=== PATIENT | male | born 1965 | race Caucasian/White ===

== ENCOUNTER 2018-07-26 08:16 | Day surgery (SDC) | payer BC ==
[~2018-07-26 08:16] MED LIST: ACETAMINOPHEN 1,000 MG/100 ML BTL IV ONE; CEFAZOLIN 2 Gram 2 GM/50 ML BAG IVPB ONE
[2018-07-26] MEDS ORDERED: METOCLOPRAMIDE 10 MG TABLET PO ONE (08:17)
[2018-07-26] MEDS ORDERED: BUPIVACAINE LIPOSOME/PF 133MG/10ML VIAL IV ONE (08:17)
[2018-07-26] MEDS ORDERED: BUPIVACAINE 0.5% W/EPI MPF 30 ML VIAL IVP ONE (08:17)
[2018-07-26] MEDS ORDERED: PROPOFOL 10 MG/ML VIAL IV ONE (08:17)
[2018-07-26] MEDS ORDERED: FENTANYL PF 100MCG/2ML VIAL IV ONE ×2 (08:17)
[2018-07-26] MEDS ORDERED: ONDANSETRON HCL IV 4 MG/2 ML VIAL IVP ONE (08:17)
[2018-07-26] MEDS ORDERED: LIDOCAINE 2% MDV (20MG/ML) 20ML VIAL IV ONE (08:17)
[2018-07-26] MEDS ORDERED: SEVOFLURANE 250 ML INH ONE (08:17)
[2018-07-26] MEDS ORDERED: FAMOTIDINE 20MG TABLET PO ONE (08:17)
[2018-07-26] MEDS ORDERED: EPHEDRINE SULFATE 50 MG/ML ML IV ONE (08:17)
[2018-07-26] MEDS ORDERED: SCOPOLAMINE 1 PATCH TDSY TD ONE (08:17)
[2018-07-26] MEDS ORDERED: HYDROCODONE/APAP 7.5/325MG TABLET PO ONE (08:17)
[2018-07-26] MEDS ORDERED: DEXAMETHASONE 4 MG/ML 1ML VIAL IVP ONE (08:17)
[2018-07-26] MEDS ORDERED: MIDAZOLAM HCL 2MG/2ML VIAL IV ONE (08:17)
--- NOTE | 2018-07-30 23:00 | Operative Note ---
DATE OF SURGERY: 07/26/2018 PREOPERATIVE DIAGNOSIS: RIGHT DISTAL BICEPS RUPTURE. POSTOPERATIVE DIAGNOSIS: RIGHT DISTAL BICEPS RUPTURE. PROCEDURE: RIGHT DISTAL BICEPS REPAIR. SURGEON: ANN GARAY M.D. ANESTHESIA: GENERAL ENDOTRACHEAL. COMPLICATIONS: NONE. ESTIMATED BLOOD LOSS: MINIMAL. OPERATIVE FINDINGS: Complete rupture and degeneration of the distal biceps tendon. COMPONENTS PLACED: Arthrex distal biceps repair locking pin with #2 FiberWire suture. 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 He is status post left distal biceps repair done years ago and he was recently lifting something and ruptured his right and was scheduled for surgery. I explained the risks and benefits thoroughly in detail for the diagnoses and procedures including but not limited to infection, nerve injury, vessel injury, persistent pain, stiffness, numbness and tingling in his arm, re-rupture of his biceps and need for further procedures and all of his questions were answered. Rehab and course were outlined and he agreed to proceed. PROCEDURE: The patient was brought into the O.R. and placed in the supine position for surgery. General endotracheal anesthesia was induced and his right upper extremity was prepped and draped in sterile fashion. It was pepped again with ChloraPrep after it was draped. Intraoperative time-out was performed. Next, we identified the distal biceps tuberosity area and infiltrated with 0.5% Marcaine with Epinephrine. We marked the incision and dissected the skin and subcutaneous tissues down into the interval to the brachioradialis and flexor wad. We dissected further deeper, cauterized any small vessels and with supination and identified the bicipital tuberosity. We then debrided that area of any remaining tendon stump. Attention was now turned to the proximal biceps. We dissected proximally. Medially, we released the lacertus fibrosis and we identified our distal biceps rupture. It was a complete rupture. We then debrided the biceps. It was degenerative in appearance too with some mucoid rubbery consistency. We debrided it and tapered it off to allow for it to fit an 8 mm hole. Next, we whipstitched with #2 FiberWire suture bringing out the end. We cut that suture. We irrigated copiously. We then loaded the anchoring pin onto the suture with our previous free needle in and out on one side of the pin and in and out on the other side of the pin. We took up the slack of sutures. Previously, we drilled the biceps hole in 15 degrees off the biceps tuberosity identifying the location of the pin and drill over the top of the pin. We drilled the pin through the near and far cortex and drilled just the near cortex with our [place] drill. Next, we inserted the anchoring pin with the arm in about 30 degrees of flexion through the hole, flipping the handle and leaving the pin flipped on the other side, angled and we then cinched the biceps feeding it into the hole until it was docked and anchored completely. We then tied these sutures down using an arthroscopic knot pushed. We set our reverse hitch on alternating post throws and cut the suture with an arthroscopic stonecutter assistant. It was verified it was completely buried in the hole and anchored and range of motion was approximately 30 degrees of full extension without excessive tension on the biceps. We irrigated copiously and closed the skin with #2-0 Vicryl and bridget. We injected the wound deep with 0.5% Marcaine with Epinephrine and Exparel. He received Toradol IV. Sterile dressing applied and ESTIVEN wrap and he was placed in the elbow brace locked at 90 degrees. cc: Jamarcus Lemons JOB NUMBER: [id number] [facility]
== END 2018-07-26 13:22 | disposition home or self-care (01) ==
LOC: EDSEX 08:16 → SUR 08:16
PROVIDERS: ATTEND Orthopaedic Surgery
DX: S46.211A Strain of muscle, fascia and tendon of other parts of biceps, right arm, initial encounter (principal); I10 Essential (primary) hypertension; E78.00 Pure hypercholesterolemia, unspecified; Z79.01 Long term (current) use of anticoagulants; E03.9 Hypothyroidism, unspecified; I25.10 Atherosclerotic heart disease of native coronary artery without angina pectoris; Z95.5 Presence of coronary angioplasty implant and graft
CPT/HCPCS: 24342; 01710; J2405; J3010; J0690; C9290; C1713